=== PATIENT | male | born 1965 | race Caucasian/White ===

== ENCOUNTER 2018-10-30 16:54 | Emergency (ER) | payer OTHER ==
[2018-10-30] MEDS ORDERED: Lidocaine 1% 20 ML MDV INJECT ONE (17:11)
[2018-10-30] MEDS ORDERED: Diphtheria,Pertussis(Acell),Tetanus Vaccine 0.5 ML Syringe IM ONE (17:11)
--- NOTE | 2018-10-30 17:11 | EDM.PDOC ---
ED HPI GENERAL MEDICAL PROBLEM - General Chief Complaint: Laceration Stated Complaint: "I cut my hand" Time Seen by Provider: 10/30/18 17:11 Source of Information: Reports: Patient History Limitations: Reports: No Limitations - History of Present Illness INITIAL COMMENTS - FREE TEXT/NARRATIVE: This patient is a 53 year old male that presents to the ER. Patient reports that today he was cutting chickens and skinning, when he cut his left hand at the base of the thumb in palm. Patient denies any other injury. Onset: Today Onset Date: 10/30/18 Duration: Hour(s): (2) Front/Back Body Image: 1 - laceration Severity: Mild Improves with: Reports: None Worsens with: Reports: None Associated Symptoms: Reports: No Other Symptoms - Related Data Allergies Allergy/AdvReac Type Severity Reaction Status Date / Time hydrocodone Allergy Swelling Verified 10/30/18 16:56 Home Meds: Home Meds Hydrocodone/Acetaminophen [[place] 5-325 Tablet] 1 each PO Q4H #30 tablet [Rx] Warfarin [Coumadin] 5 mg PO .Pharmacy To Dose #30 tablet 11/06/16 [Rx] Past Medical History - Past Health History Medical/Surgical History: Denies Medical/Surgical History Social & Family History - Family History Family Medical History: Noncontributory ED ROS GENERAL - Review of Systems Review Of Systems: See Below Constitutional: Reports: No Symptoms HEENT: Reports: No Symptoms Respiratory: Reports: No Symptoms Cardiovascular: Reports: No Symptoms Endocrine: Reports: No Symptoms GI/Abdominal: Reports: No Symptoms : Reports: No Symptoms Musculoskeletal: Reports: No Symptoms Skin: Reports: Wound (laceration left palm) Neurological: Reports: No Symptoms Psychiatric: Reports: No Symptoms Hematologic/Lymphatic: Reports: No Symptoms Immunologic: Reports: No Symptoms ED EXAM, SKIN/RASH Exam: See Below Exam Limited By: No Limitations General Appearance: Alert, WD/WN, No Apparent Distress Peripheral Pulses: 2+: Radial (L), Radial (R) Extremities: Normal Range of Motion, Non-Tender, No Pedal Edema, Normal Capillary Refill Neurological: Alert, Oriented, Normal Gait, No Motor/Sensory Deficits Psychiatric: Normal Affect, Normal Mood Skin: Warm, Dry, Normal Color, No Rash, Wound/Incision (laceration left palm, base of thumb palm side. 1cm. Full ROM of the wrist, hand, all digits without pain or decreased ROM. ) Location, Skin: Upper Extremity, Left Associated features: No: Warmth, Tenderness Lymphatic: No Adenopathy Front/Back Body Diagram: 1 - laceration ED SKIN PROCEDURES - Laceration/Wound Repair Left Hand Lac/Wound length In cm: 1 Appearance: Subcutaneous Distal NVT: Neuro & Vascular Intact, No Tendon Injury Anesthetic Type: Local Local Anesthesia - Lidocaine (Xylocaine): 1% Plain Local Anesthetic Volume: 1cc Skin Prep: Chlorhexidine (Hibiciens) Saline Irrigation (cc's): 30 Exploration/Debridement/Repair: Wound Explored, In a Bloodless Field, Explored to Base Closed with: Sutures Suture Size: other (5-0) # of Sutures: 2 Suture Type: Nylon Tetanus Status Addressed: Yes Complications: No Complication Description: None, wound scrubbed and irrigated well. Course - Orders/Labs/Meds Orders: Active Orders 24 hr Category Date Time Status Vaccines to be Administered [RC] PER UNIT ROUTINE Care 10/30/18 17:12 Active Diphth,Pertuss(Acell),Tet Vac [Adacel] Med 10/30/18 17:11 Once 0.5 ml IM .ONCE ONE Medication Orders Diphtheria/Tetanus/Acell Pertussis (Adacel) 0.5 ml IM .ONCE ONE Stop: 10/30/18 17:12 Meds: Medications Generic Name Dose Route Start Last Admin Trade Name Freq PRN Reason Stop Dose Admin Diphtheria/Tetanus/Acell Pertussis 0.5 ml 10/30/18 17:11 Adacel IM 10/30/18 17:12 .ONCE ONE Discontinued Medications Generic Name Dose Route Start Last Admin Trade Name Freq PRN Reason Stop Dose Admin Lidocaine HCl 20 ml 10/30/18 17:11 Xylocaine 1% INJECT 10/30/18 17:12 ONETIME ONE Departure - Departure Time of Disposition: 17:25 Disposition: Home, Self-Care 01 Condition: Good Clinical Impression: Laceration - Discharge Information *PRESCRIPTION DRUG MONITORING PROGRAM REVIEWED*: No *COPY OF PRESCRIPTION DRUG MONITORING REPORT IN PATIENT SHAMA: No Instructions: Laceration Care, Adult, [id number], Stitches, [place], or Adhesive Wound Closure, [id number] Forms: ED Department Discharge Additional Instructions: Followup with your primary care provider in 5 days for evaluation of sutures and possible removal Return to the ER for worsening of condition or any emergent concerns Wash the wound with soap and water twice a day, rinse, pat dry,. Keep clean and dry Watch for signs of infection such as redness, heat, drainage, fever, vomiting. Be seen if occurs. - My Orders Last 24 Hours: My Active Orders 10/30/18 17:11 Diphth,Pertuss(Acell),Tet Vac [Adacel] 0.5 ml IM .ONCE ONE 10/30/18 17:12 Vaccines to be Administered [RC] PER UNIT ROUTINE - Assessment/Plan Last 24 Hours: My Active Orders 10/30/18 17:11 Diphth,Pertuss(Acell),Tet Vac [Adacel] 0.5 ml IM .ONCE ONE 10/30/18 17:12 Vaccines to be Administered [RC] PER UNIT ROUTINE Plan: PLEASE SEE RN NOTE FOR PFSH.
[2018-10-30 19:19] VITALS: BP 128/73
== END 2018-10-30 17:50 | disposition home or self-care (01) ==
LOC: CC.ED 16:54
DX: S61.412A Laceration without foreign body of left hand, initial encounter (principal); Z88.8 Allergy status to other drugs, medicaments and biological substances; W26.0XXA Contact with knife, initial encounter; Y93.89 Activity, other specified; Z23 Encounter for immunization
CPT/HCPCS: 12001; 90471; 90715; 99283

== ENCOUNTER 2025-01-27 06:55 | Day surgery (SDC) | payer OTHER ==
[2025-01-27] MEDS: Lactated Ringers 1,000 ML IV SCH (07:18)
[2025-01-27] MEDS ORDERED: Propofol 200 MG/20 ML SDV ONE (07:37)
[2025-01-27] MEDS ORDERED: Midazolam 1 MG/ML 2 ML SDV ONE (07:37)
[2025-01-27] MEDS ORDERED: Flumazenil 0.1 MG/ML 10 ML MDV ONE (07:37)
[2025-01-27] MEDS ORDERED: fentaNYL 50 MCG/ML SDV ONE (07:37)
[2025-01-27 09:00] VITALS: BP 103/67; PULSE 74
== END 2025-01-27 09:07 | disposition home or self-care (01) ==
LOC: CC.SDS 06:55
PROVIDERS: ATTEND Family Medicine
DX: Z12.11 Encounter for screening for malignant neoplasm of colon (principal); K63.5 Polyp of colon; K62.1 Rectal polyp; K57.30 Diverticulosis of large intestine without perforation or abscess without bleeding; D68.51 Activated protein C resistance; Z79.899 Other long term (current) drug therapy
CPT/HCPCS: 00811; J2250; J2704; J3010; J3490; J7120

== ENCOUNTER 2025-02-11 16:26 | Emergency (ER) | payer OTHER ==
[2025-02-11 16:46] VITALS: BP 114/71; PULSE 77
[2025-02-11] MEDS: Take Home: Amoxicillin 500 MG Cap, 2 Cap Pack PO ONE (18:01)
== END 2025-02-11 18:00 | disposition home or self-care (01) ==
LOC: CC.ED 16:26
DX: J03.90 Acute tonsillitis, unspecified (principal); Z79.899 Other long term (current) drug therapy; Z79.01 Long term (current) use of anticoagulants; Z88.5 Allergy status to narcotic agent
CPT/HCPCS: 87651; 99284; A9270-GY